=== PATIENT | female | born 1965 | race Caucasian/White ===

== ENCOUNTER 2020-11-16 16:12 | Emergency (ER) | payer OTHER ==
[2020-11-16] MEDS ORDERED: TETRACAINE 0.5% OPHTH SOLN 4 ML BTL (SINGLE DOSE ONLY) ONE (16:13)
[2020-11-16] MEDS ORDERED: FLUORESCEIN (FLUOR-I-STRIPS) 1 MG STRP ONE (16:16)
[2020-11-16] MEDS: FLUORESCEIN (FLUOR-I-STRIPS) 1 MG STRP OU ONE (16:17)
[2020-11-16] MEDS: TETRACAINE 0.5% OPHTH SOLN 4 ML BTL (SINGLE DOSE ONLY) OU ONE (16:17)
[2020-11-16 16:36] VITALS: BP 148/85
[2020-11-16] MEDS ORDERED: ERYT1OIN6 OP (16:38)
--- NOTE | 2020-11-16 16:40 | ED EENT ---
History of Present Illness General Chief Complaint: Eye Problems Stated Complaint: SOMETHING IN RIGHT EYE Source: patient Exam Limitations: no limitations History of Present Illness Date Seen by Provider: November 16, 2020 Time Seen by Provider: 16:13 Initial Comments 55-year-old female presents with right eye pain. States she was asleep this afternoon and woke up with her eye feeling uncomfortable so she was rubbing it. Presents to the ER with acute right eye pain and concerned that maybe her dog scratched it or she had an eyelash in it. Denies any known injury or trauma or any previous problem with her eyes. Denies change of vision, photosensitivity. Allergies and Home Medications Allergies Coded Allergies: No Known Drug Allergies (Unverified , 11/16/20) Home Medications Erythromycin Base 1 Gm Oint...g., 0 OP Q6H 1/2 inch Prescribed by: ELAINA QUINTANA on 11/16/20 3429 Patient Home Medication List Home Medication List Reviewed: Yes Review of Systems Review of Systems Constitutional: see HPI; No fever, No malaise, No weakness Eyes: Denies Blindness, Denies Blurred Vision, Denies Drainage, Denies Decreased Acuity; Foreign Body Sensation, Pain; Denies Photophobia, Denies Previous Injury, Denies Tunnel Vision, Denies Vision Changes, Denies Contact Lenses Ears: No Symptoms Reported Nose: no symptoms reported Gastrointestinal: No abdominal pain, No nausea, No vomiting Past Wrkpvfz-Wyndao-[place] Hx Past Med/Social Hx: Reviewed Nursing Past Med/Soc Hx Physical Exam Vital Signs Vital Signs - First Documented 11/16/20 16:36 Temp 36.8 Pulse 85 Resp 18 B/P (MAP) 148/85 (106) Pulse Ox 97 O2 Delivery Room Air Height, Weight, BMI Height: '" Weight: lbs. oz. kg; BMI Method: General Appearance: moderate distress (hystrionic and difficult to get pt to cooperate for simple exam and giving eye gtts to relieve pain) Eyes: right eye conjunctival inflammation, right eye lid inflammation; bilateral eye PERRL, bilateral eye EOMI Neurologic/Psychiatric: alert (anxious and hystrionic until after tetraciane gtts instilled); No abnormal gait, No motor weakness, No sensory deficit Skin: normal color, warm/dry mild conjunctival injection. Normal cornea without flourescien uptake. No FB seen w lid eversion and thorough exam. Eye irrigated w NS. Patient then comfortable and feeling better. Shortly after relief...patient states her left eye feels like it has something in it and points to her eyelid, stating she think it's an eyelash and if feels the same as her right now. Quickly calms down after a gross eval of her left eye for FB and states she's fine again. Tonometry pen did not function ( battery?) Progress/Results/Core Measures Results/Orders My Orders Orders - ELAINA QUINTANA DO Tetracaine 0.5% Ophth Rachna Sdv (Tetracai (11/16/20 16:13) Fluorescein Strips ([id number]-B-Cteziw) (11/16/20 16:16) Tetracaine 0.5% Ophth Rachna Sdv (Tetracai (11/16/20 16:45) Fluorescein Strips ([id number]-[id number]-Cjkdhg) (11/16/20 16:45) Vital Signs/I&O 11/16/20 16:36 Temp 36.8 Pulse 85 Resp 18 B/P (MAP) 148/85 (106) Pulse Ox 97 O2 Delivery Room Air Progress Progress Note : Progress Note Unable to get eye pressure as the Ronnie-Pen was malfunctioning, battery would not turn on. No replacement batteries available. Advised the patient that we could transfer her to another ER where we could get her eye pressures as this was an important part of her evaluation, patient adamantly declines. Of fered to call in an [facility] here locally and patient again declines stating she feels better and does not want to pay anyone. Suspect nonpathologic eye irritation secondary to patient rubbing it when she woke up from sleep with may be a small eyelash initially, cannot confirm. However on arrival patient very histrionic and difficult to calm down out of proportion to normal exam findings without injury. Patient was asymptomatic after tetracaine, however began to have similar symptoms over left eye that went away within a matter of seconds when reassured. Advised patient follow-up with eye doctor on Wednesday here locally and to return to the nearest ER if her eye pain gets worse or changes or she is having any visual changes. Patient agrees and expresses understanding. Departure Impression Primary Impression: Pain in eye Qualified Codes: H57.11 - Ocular pain, right eye Disposition: 01 HOME, SELF-CARE Condition: Improved Departure-Patient Inst. Decision time for Depature: 16:36 Referrals: LEONEL KHALIL MD (PCP) Primary Care Physician Ophthalmmologist Patient Instructions: Corneal Abrasion (DC) Add. Discharge Instructions: Call Dr Rodas's office on Wednesday to set up an "ER follow up exam" If you are pain gets worse go to the nearest ER for re-evaluation All discharge instructions reviewed with patient and/or family. Voiced understanding. Scripts Erythromycin Base (Erythromycin Opthalmic Ointment) 1 Gm Oint...g. 0 OP Q6H for 3 Days, #1 TUBE 1/2 inch Prov: ELAINA QUINTANA DO 11/16/20 ELAINA QUINTANA DO November 16, 2020 16:40
[2020-11-16] MEDS ORDERED: FLUORESCEIN (FLUOR-I-STRIPS) 1 MG STRP OU ONE (16:45)
[2020-11-16] MEDS ORDERED: TETRACAINE 0.5% OPHTH SOLN 4 ML BTL (SINGLE DOSE ONLY) OU ONE (16:45)
== END 2020-11-16 16:42 | disposition home or self-care (01) ==
LOC: ER FS 16:15
DX: H57.11 Ocular pain, right eye (principal)
CPT/HCPCS: 99282